=== PATIENT | female | born 1995 | race Caucasian/White ===

== ENCOUNTER 2016-11-26 00:09 | Emergency (ER) | payer OTHER ==
[2016-11-26 00:18] VITALS: PULSE 76; TEMP 98.1
[2016-11-26] MEDS ORDERED: ACETAMINOPHEN 500 MG TAB PO ONE (00:41)
--- NOTE | 2016-11-26 01:41 | EDPHY ---
H & P Stated Complaint: hit head standing up under ledge Time Seen by Provider: 11/26/16 00:19 HPI/ROS: Chief Complaint: Head injury HPI: 21-year-old woman stood up rapidly underneath a little overhang instruct the top of her head. She had no loss of consciousness. She has been having worsening headache which has been getting gradually worse over the last hour 2. Some nausea no vomiting. Is also feeling a bit days. No history of prior injuries. Is not on any anticoagulation. Is currently on her menstrual cycle. No neck pain. No numbness or weakness. No other complaints at this time. Pain is a 8/10. ROS: 10 point Review of Systems is negative except as noted in the HPI. PMH: Denies Medications: Denies Allergies: Latex, Flagyl Social History: No smoking, no alcohol, no recreational drug use Family History: non-contributory Physical Exam: Gen: Awake, Alert, No Distress HEENT: She has some mild tenderness in the vertex of her scalp, no ecchymosis, abrasions or lacerations. Nose: no rhinorrhea Eyes: PERRLA, EOMI Mouth: Moist mucosa Neck: Supple, no JVD, nontender, full range of motion without pain Chest: nontender, lungs clear to auscultation Heart: S1, S2 normal, no murmur Abd: Soft, non-tender, no guarding Back: no CVA tenderness, no midline tenderness Ext: no edema, non-tender Skin: no rash Neuro: CN II-XII intact, Sensation grossly intact, Strength 5/5 in bilateral upper and lower extremities - Personal History LMP (Females 10-55): Now Current Tetanus/Diphtheria Vaccine: Yes Current Tetanus Diphtheria and Acellular Pertussis (TDAP): Yes Tetanus Vaccine Date: 07/2014 - Medical/Surgical History Hx Asthma: No Hx Chronic Respiratory Disease: No Hx Diabetes: No Hx Cardiac Disease: No Hx Renal Disease: No Hx Cirrhosis: No Hx Alcoholism: No Hx HIV/AIDS: No Hx Splenectomy or Spleen Trauma: No Other PMH: bacterial vaginosis. IBS, CHRONIC CONSTIPATION, HX OF BOLEMIA; gastritis. fungal spot on back - Social History Smoking Status: Never smoked Constitutional: Initial Vital Signs Temperature (C) 36.7 C 11/26/16 00:14 Heart Rate 76 11/26/16 00:14 Respiratory Rate 18 11/26/16 00:14 Blood Pressure 137/111 H 11/26/16 00:14 O2 Sat (%) 100 11/26/16 00:14 O2 Delivery Mode Room Air Allergies/Adverse Reactions: latex Allergy (Verified 11/26/16 00:13) metronidazole [From Flagyl] Allergy (Verified 12/21/14 16:15) Home Medications: Medication Instructions Recorded Tablet 11/26/16 Medical Decision Making - Diagnostics Imaging Results: CT scan of the head is negative per Dr. Olivares. Imaging: Discussed imaging studies w/ gang ripsaw operator Radiologist ED Course/Re-evaluation: 21-year-old woman who struck her head earlier tonight he has been having worsening headache with some nausea and changes in her mentation. CT scan was ordered because her headache is worsening has not had any relief with analgesia. She is also having progressively developing symptoms. CT scan is negative. Patient has been reassured and will be discharged with follow up with primary care physician when she returns home. - Data Points Medications Given: Discontinued Medications Acetaminophen (Tylenol) 1,000 mg PO EDNOW ONE Stop: 11/26/16 00:42 Last Admin: 11/26/16 00:47 Dose: 1,000 mg Departure - Departure Disposition: Home, Routine, Self-Care Clinical Impression: Head injury Condition: Good Instructions: Head Injury (ED) Additional Instructions: uation. Return emergency depart for increasing headache, worsening nausea vomiting, numbness or weakness in her extremities, fevers, chills, or any other concerns. Follow up with your primary care physician in 3-4 days for re-evaluation. Referrals: Yanet Wiley MD [Primary Care Provider] - As per Instructions
[2016-11-26] MEDS ORDERED: IBUPROFEN 200 MG TAB PO ONE (01:45)
[2016-11-26 02:23] VITALS: BP 121/80; RESP 16; O2SAT 97
== END 2016-11-26 02:01 | disposition home or self-care (01) ==
DX: S09.90XA Unspecified injury of head, initial encounter (principal); Z91.040 Latex allergy status; W22.8XXA Striking against or struck by other objects, initial encounter